=== PATIENT | female | born 1980 | race Caucasian/White ===

== ENCOUNTER → 2018-01-10 09:00 | Outpatient (CLI) | payer OTHER, SELFPAY ==
[2018-01-20 08:21] LABS: HPV APTIMA, High Risk Negative (Negative); HPV Reflexed? YES, CHARGE PATIENT
== END ==
PROVIDERS: Visit Provider Obstetrics & Gynecology
DX: Z12.4 Encounter for screening for malignant neoplasm of cervix (principal)
CPT/HCPCS: 87624; 88175; G0145

== ENCOUNTER → 2018-02-06 19:30 | Outpatient (CLI) | payer OTHER, SELFPAY ==
--- NOTE | 2018-02-06 | IMM_PTH ---
PATIENT: JASMYNE FORD LOC: [facility] U#:[id number] AGE/SX: 45/F ROOM: RE02/06/[address]: Dr. Migue Torrez MD : 1980 BED: DIS: SPEC #: [id number] RECD: 02/08/18 10:49 STATUS: HALI NICOLA #: [id number] JASON: 02/06/18 00:[address]: Migue Torrez DEPT: IMMUNOHISTOCHEMISTRY RECD BY: Bel Kim Tissues: A - Uterine cervix, NOS Procedures: p16 (initial) KI-67 (add) PHYSICIAN & INSTITUTION [place] [id number] SPECIMEN INFORMATION: Tissue Source: A ? Cervical biopsy four-quad Clinical Info: HERLINDA Specimen Number: [id number] CPT code: 89305, 99946 METHODOLOGY: Deparaffinized sections of prefer/formalin-fixed tissue or PAP/DQ stained slides are incubated with monoclonal/polyclonal antibodies/oligonucleotide probes. Localization is made via biotin free immunoperoxidase method. Appropriate controls are performed and reacted as expected. Results on target cell population are indicated in the following table: RESULTS: ANTIBODY / CLONE RESULT Block A P16 (E6H4) positive, focal and patchy Ki-67 (30-9) positive, low These tests were developed and their performance characteristics determined by [facility]. They may not have been cleared or approved by the U.S. Food and Drug Administration. The FDA has determined that such clearance or approval is not necessary. INTERPRETATION: A. Cervix, four-quad biopsy: Focal mild squamous dysplasia. SJ:murtaza 02/09/18
--- NOTE | 2018-02-06 15:45 | CER_PTH ---
PATIENT: JASMYNE FORD LOC: [facility]#:[id number] AGE/SX: 45/F ROOM: RE02/06/[address]: Dr. Migue Torrez MD : 1980 BED: DIS: SPEC #: [id number] RECD: 02/06/18 19:30 STATUS: HALI NICOLA #: [id number] JASON: 02/06/18 15:[address]: Migue Torrez DEPT: SURGICAL PATHOLOGY RECD BY: Sudhri Enrique Tissues: A - Uterine cervix, NOS B - Endocervical Procedures: Surgery Specimen Level IV HEADER OPERATION: Colposcopy PRE-OP DIAGNOSIS: LGSIL R87.612 TISSUE SUBMITTED: A ? Cervical biopsy four-quad, B - ECC MICROSCOPIC DIAGNOSIS A. Cervix, four-quadrant biopsy: Mild squamous dysplasia with HPV changes (LGSIL and JOSEPH I). Acute and chronic inflammation and squamous metaplasia. See comment. B. ECC: Scant fragments of benign ecto- and endocervical epithelium, blood and mucous, negative for dysplasia. JASPER:murtaza 02/08/18 COMMENT A. Immunohistochemistry ([id number]) for surrogate HPV marker (p16) supports the above diagnosis. B. The specimen predominantly consists of blood and mucous. Please make reference to previous specimen ([id number]) cervix, 12 o?clock, biopsy with diagnosis of mild dysplasia with HPV changes. MICROSCOPIC DESCRIPTION Slides are reviewed. GROSS DESCRIPTION A - Received in fixative is one container labeled with the patient's name and designated cervical biopsy. The specimen consists of multiple irregular fragments of pink-galicia soft tissue that in aggregate measure 1.2 x 0.6 x 0.2 cm. The specimen is totally submitted in one cassette. B - Received in fixative is one container labeled with the patient's name and designated ECC. The specimen consists of multiple irregular fragments of dark brown soft tissue that in aggregate measure 1.1 x 0.7 x 0.1 cm. The specimen is totally submitted in one cassette. / RY:murtaza 02/07/18 TC:5 CPT: 72087 x2
== END ==
PROVIDERS: Visit Provider Obstetrics & Gynecology
DX: R87.612 Low grade squamous intraepithelial lesion on cytologic smear of cervix (LGSIL) (principal)
CPT/HCPCS: 88305; 88341; 88342

== ENCOUNTER → 2019-01-16 14:30 | Outpatient (CLI) | payer OTHER, SELFPAY ==
[2019-01-19 16:11] LABS: HPV APTIMA, High Risk Negative (Negative)
== END ==
PROVIDERS: Visit Provider Obstetrics & Gynecology
DX: Z12.4 Encounter for screening for malignant neoplasm of cervix (principal)
CPT/HCPCS: 88175; G0145

== ENCOUNTER → 2020-03-12 | Outpatient (CLI) | payer OTHER, SELFPAY ==
[2020-03-14 00:40] LABS: HPV APTIMA, High Risk Negative (Negative)
[2020-03-17 16:14] LABS: HPV Reflexed? YES, CHARGE PATIENT
== END | disposition home or self-care (01) ==
LOC: LABSPEC 08:48
PROVIDERS: Referring Provider Obstetrics & Gynecology; Visit Provider Obstetrics & Gynecology
DX: Z12.4 Encounter for screening for malignant neoplasm of cervix (principal)
CPT/HCPCS: 87624; 88175; G0145

== ENCOUNTER → 2020-05-12 | Outpatient (CLI) | payer OTHER, SELFPAY ==
[2020-05-08 08:59] VITALS: BMI 24.6
--- NOTE | 2020-05-12 | BRBX_PTH ---
PATIENT: JASMYNE FORD LOC: [facility] U#:[id number] AGE/SX: 39/F ROOM: RE05/12/[address]: TORIE: 1980 BED: DIS: 05/12/2020 SPEC #: [id number]: 05/12/20 12:04 STATUS: HALI PETERSEN #: [id number] JASON: 05/12/20 00:[address]: Key Tabor DEPT: SURGICAL PATHOLOGY RECD BY: Manuel Hernandez ENTERED: 05/12/20 12:23 SP TYPE: BREAST BX HEIDI DR: Dr. Tony Garnett MD Tissues: Right breast, NOS Procedures: Surgery Specimen Level IV HEADER OPERATION: Right breast stereotactic biopsy PRE-OP DIAGNOSIS: Right breast calcifications 12 o'clock mid depth TISSUE SUBMITTED: Right breast core tissue ISCHEMIC TIME: 1.5 minute FIXATION TIME: 7.5 hours MICROSCOPIC DIAGNOSIS Right breast, calcifications, 12 o'clock mid depth, stereotactic core biopsy: Fragments of benign breast tissue with focal minimal fibrosis. Negative for atypia or malignancy. See comment. JASPER:murtaza 05/13/20 COMMENT Microcalcifications are not seen. Multiple levels are examined. Correlation with clinical, radiologic findings and appropriate follow up are necessary. Please make reference to previous specimen dated 04/30/20 ([id number] from [facility]), left breast mass, needle core biopsy at 3 o'clock with diagnosis of ductal carcinoma in situ, nuclear grade 3, solid and cribriform type. Case has been reviewed in consultation with Dr. Ware who concurs with the above diagnosis. IDC:AM MICROSCOPIC DESCRIPTION Slides are reviewed. GROSS DESCRIPTION Received in fixative is one container labeled with the patient name and designated right breast. The specimen consists of multiple elongated fragments of galicia-yellow fibroadipose tissue that in aggregate measure 2.5 x 1.5 x 0.3 cm. The entire specimen is submitted in one cassette. / JASPER:murtaza 05/12/20 TC:5 CPT: 72525
--- NOTE | 2020-05-12 10:00 | BI_ITS ---
STEREOTACTIC CORE BIOPSY REASON FOR EXAM: Female, 39 years old. RIGHT BREAST STEREO PERTINENT HISTORY: Microcalcifications in the deep central portion of the right breast. COMPARISON: None. TECHNIQUE: (All elements of maximal sterile barrier technique followed, including US elements as applicable) Upon arrival to the breast imaging department the patient''s identification was confirmed and the RIGHT breast was marked according to time-out protocol. Stereotactic core biopsy and clip placement, to include potential risks and complications, was explained in full to the patient. Written and verbal consent were obtained prior to initiation of the procedure. The patient was placed in prone position on the stereotactic biopsy table with the RIGHT breast in cranial caudad compression. Environmental [employer] Specialist and stereotactic views were then obtained for targeting. The RIGHT breast was prepped and draped in standard sterile fashion and local anesthesia was obtained with 1% buffered lidocaine. A small dermatotomy was then made to introduce the core biopsy needle. Multiple core samples were obtained with a 8 gauge vacuum assisted core biopsy needle. The specimen''s were radiographed to determine the presence of calcifications and submitted in formalin for pathology. A titanium clip was then deployed into the biopsy cavity. Upon completion of the procedure hemostasis was obtained and sterile dressing was applied. The patient tolerated the entire procedure without immediate complication and was discharged from the breast imaging department in good condition. BI/Stereo Breast Biopsy 1st [facility] IMPRESSION: Stereotactic core biopsy for microcalcifications in the RIGHT breast without complication. Electronically Signed: Mitul Graf, at 14:43 EDT , Service support ,
--- NOTE | 2020-05-15 10:43 | HP_ITS ---
ADDENDUM by Dr. Key Tabor MD on 05/15/20 at 1045 Addendum entered and electronically signed by Key Tabor MD 05/15/20 10:45: Did also discuss with patient option of having a mastectomy for the left side with DCIS she did want to just proceed with the lumpectomy currently understand that she may need more surgery for margins or possibly a sentinel lymph node biopsy if there is found to be any invasive component. Patient is also aware that we will recommend radiation therapy for DCIS after surgery as well as an anti-estrogen pill. Patient was okay with proceeding with surgery and not meeting with radiation oncology at this point. She has already met with Dr. Rome. Patient no further questions this time. Intake Chief Complaint: Referred for L breast DCIS and R breast calcifications. Allergies acetaminophen [From Vicodin] Adverse Reaction (Verified 05/14/20 13:29) Rash adhesive tape Adverse Reaction (Verified 05/14/20 13:29) Rash bacitracin [From Neosporin (med-tin-[id number])] Adverse Reaction (Verified 05/14/20 13:29) Other bacitracin zinc [From Neosporin (vum-afe-ubhkl)] Adverse Reaction (Verified 05/14/20 13:29) Other hydrocodone bitartrate [From Vicodin] Adverse Reaction (Verified 05/14/20 13:29) Rash neomycin sulfate [From Neosporin (tff-ftq-mcvzd)] Adverse Reaction (Verified 05/14/20 13:29) Other polymyxin B [From Neosporin (het-auw-phkem)] Adverse Reaction (Verified 05/14/20 13:29) Other Medications Acyclovir 400 mg PO DAILY 09/23/14 [History Confirmed 05/14/20] Ascorbic Acid [Vitamin C] 1,000 mg PO DAILY@0800 09/23/14 [History Confirmed 05/14/20] Multivitamins,Therapeutic [Multivitamin] 1 tab PO DAILY 09/23/14 [History Confirmed 05/14/20] Levonorgestrel-Ethin Estradiol [Aviane-28 Tablet] 1 ea PO DAILY 05/07/20 [History Confirmed 05/14/20] omeprazole 20 mg capsule,delayed release 20 mg PO DAILY 05/14/20 [History Confirmed 05/14/20] Assessment & Plan Problems 1. Ductal carcinoma in situ (DCIS) of left breast D05.12 2. Breast calcification, right R92.1 Plan - Dr. Key Tabor MD Patient did not have a clip or marker placed when she had her left breast ultrasound-guided biopsy about 2 weeks ago which showed DCIS. With patient get an ultrasound here to make sure we were able to see it well as I cannot see it well with our ultrasound in the office. Discussed with patient that if we are able to see it we will plan for needle localization in ultrasound for the left breast and stereotactic needle localization for the right breast calcifications that that pathology did not show calcifications question whether this may be vascular in nature but I do think it be worth getting an excisional biopsy and patient also would like the clip removed. Plan for left breast ultrasound guided needle localization (in ultrasound), right breast stereotactic guided needle localization, bilateral lumpectomies. Discussed procedure including but not limited to risk of bleeding, infection, need for further surgeries for margins or lymph nodes if pathology showed any evidence of invasive cancer, anesthesia, etc. Patient and her no further questions this time. Greater than 50% of direct patient contact was spent in counseling or coordination of care. I spent 70 minutes counseling the patient on DCIS, possible need for further surgery for margins or lymph nodes if there are were found to have invasive cancer, reviewing imaging studies from outside along with biopsy results and coordinating care. Key Tabor M.D. Pager: [phone] [facility] [address] [place] [address], [address] [place] [address] Office: [phone] Plan Detail Follow Up We will get left breast ultrasound contact the patient and plan for surgery as long as he is able to be seen under ultrasound. 05/15/20 1045 <Electronically signed by Key Meyer am, MD> Date _ Key Tabor MD cc: Dr. Migue Trorez MD; Dr. Derrick Rome MD; Dr. Tony Garnett MD ~* Signed Intake Vital Signs 05/14/20 Height 5 ft 8 in 05/14/20 Weight: 164 lb 05/14/20 BMI 24.9 05/14/20 BP 116/80 05/14/20 Blood Pressure Location Rt brachial 05/14/20 Position Sitting 05/14/20 Respiration 18 05/14/20 Pulse 68 05/14/20 Pulse Source Monitor 05/14/20 Temp 98.3 F 05/14/20 Temp Source Temporal 05/14/20 Pulse Oximetry (%) 100 05/14/20 Oxygen Delivery Method room air Intake Visit Reasons: LUMPECTOMY , LEFT BREAST CANCER Chief Complaint: Referred for L breast DCIS and R breast calcifications. Lacquer Maker Required: No Accompanied by: Is patient in pain?: No Allergies acetaminophen [From Vicodin] Adverse Reaction (Verified 05/14/20 13:29) Rash adhesive tape Adverse Reaction (Verified 05/14/20 13:29) Rash bacitracin [From Neosporin (zad-pfk-klprw)] Adverse Reaction (Verified 05/14/20 13:29) Other bacitracin zinc [From Neosporin (hvj-sbn-qrfeg)] Adverse Reaction (Verified 05/14/20 13:29) Other hydrocodone bitartrate [From Vicodin] Adverse Reaction (Verified 05/14/20 13:29) Rash neomycin sulfate [From Neosporin (jms-qej-hfwsv)] Adverse Reaction (Verified 05/14/20 13:29) Other polymyxin B [From Neosporin (njl-zzj-rgpnr)] Adverse Reaction (Verified 05/14/20 13:29) Other Medications Acyclovir 400 mg PO DAILY 09/23/14 [History Confirmed 05/14/20] Ascorbic Acid [Vitamin C] 1,000 mg PO DAILY@0800 09/23/14 [History Confirmed 05/14/20] Multivitamins,Therapeutic [Multivitamin] 1 tab PO DAILY 09/23/14 [History Confirmed 05/14/20] Levonorgestrel-Ethin Estradiol [Aviane-28 Tablet] 1 ea PO DAILY 05/07/20 [History Confirmed 05/14/20] omeprazole 20 mg capsule,delayed release 20 mg PO DAILY 05/14/20 [History Confirmed 05/14/20] [facility] Medical History Abnormal mammogram (Acute) Ductal carcinoma in situ (DCIS) of left breast (Acute) Forearm pain (Acute) Wrist tendonitis (Acute) Surgical History Hx of knee surgery (Acute) Family History (Updated 05/14/20 @ 13:26 by Virginie Herrera) Grandfather Colon cancer Social History (Updated 05/15/20 @ 10:[address] Key Tabor MD) Smoking Status: Never smoker alcohol intake: current alcohol intake frequency: a few times a month substance use type: does not use HPI HPI HPI: JASMYNE FORD, is a 39 F who presents to the office today for HPI HPI Surgical H&P: Yes HPI: JASMYNE FORD, is a 39 F who presents to the office today for status post bilateral breast biopsies. Patient was seen at [facility] and had an ultrasound-guided biopsy about 2 weeks ago of the left breast at 3:00 which did show DCIS, no marker was left at the patient's request. Patient also showed some calcifications in the right breast which was given BI-RADS 3 and she was scheduled to have a stereotactic guided biopsy at [facility] with our radiologist which was completed on Tuesday. Pathology for the right breast did not show any calcifications or any malignancy or atypia. Patient did allow a clip to be placed however due to previous strange reactions to various things including Neosporin patient does not want to keep the clip in long-term and would prefer for it to be removed. Patient had her first mammogram done this year. Patient denies any family history of breast cancer. Denies any masses or lumps appreciated in either breast, denies any nipple discharge, denies any changes to overlying skin. Patient did have a little bit of bruising from that previous biopsies which is improving. ROS General General: No weight change, fatigue, colon cancer, breast cancer or weakness HEENT HEENT: No difficulty swallowing, eye injury, eye surgery, swollen glands or hoarseness Endo Endocrine: No thyroid disease, diabetes mellitus, thyroid cancer, Hair loss, heat intolerance or cold intolerance Skin Skin: No rash or changing moles Breast Breast: Yes abnormal mammogram and abnormal US; no left breast lump, right breast lump, nipple discharge, breast pain or breast enlargement Musc Musculoskeletal: No back problems, arthritis, rheumatoid arthritis, gout or joint pain Cardio Cardiovascular: No murmur, pacemaker, heart disease, atrial fibrillation, high blood pressure, heart attack, heart stent, palpitations, shortness of breat with exertion or chest pain Psych Psychiatric: No depression, anxiety or hearing voices Resp Respiratory: No shortness of breath, No sleep apnea, No cough, No COPD, No asthma, No emphysema, No wheezing Gastro Gastrointestinal: No abdominal pain, No nausea or vomiting, No diarrhea, No constipation, No blood in stool, Yes acid reflux, No hemorrhoids, No ulcers, No gallbladder problem, No black,tarry stools Ty Hematologic: No blood thinners, No blood disorders, No bleeding, No anemia, No blood clots Neuro Neurologic: No system reviewed and no additional complaints, except as docu, No as per HPI, No abnormal walking, No abnormal hearing, No abnormal movements, No abnormal speech, No behavioral changes, No burning sensations, No confusion, No seizure-like activity, No unsteadiness, No dizziness, No localized weakness, No frequent falls, No headache(s), No lack of coordination, No loss of vision, No memory loss, No numbness, No other visual disturbances, No radiating pain, No restless legs, No sensory deficit, No fainting, No tingling, No tremor(s), No weakness, No other Exam Const General: cooperative, comfortable, no acute distress Chest Breast inspection: abnormal inspection of the breast (Symmetric bilaterally, evidence of previous biopsies and resolving ecchymosis on the left breast incision healing well, right breast biopsy site still healing no signs of infection) Breast Palpation: Yes normal palpation of the axillae, Yes no axillary lymphadenopathy, Yes abnormal palpation of the axilla (Induration appreciated at biopsy sites otherwise no other masses detected on exam, left incision well- healed, right breast incision still healing no signs of infection.), No nipple discharge, No supraclavicular, No change in skin Resp Effort & Inspection: normal respiratory effort Cardio Heart Sounds: no murmurs GI Inspection: non-distended Palpation: soft, no guarding Psych Affect: anxious affect Attitude: cooperative Assessment & Plan Problems 1. Ductal carcinoma in situ (DCIS) of left breast D05.12 2. Breast calcification, right R92.1 Plan Patient did not have a clip or marker placed when she had her left breast ultrasound-guided biopsy about 2 weeks ago which showed DCIS. With patient get an ultrasound here to make sure we were able to see it well as I cannot see it well with our ultrasound in the office. Discussed with patient that if we are able to see it we will plan for needle localization in ultrasound for the left breast and stereotactic needle localization for the right breast calcifications that that pathology did not show calcifications question whether this may be vascular in nature but I do think it be worth getting an excisional biopsy and patient also would like the clip removed. Plan for left breast ultrasound guided needle localization (in ultrasound), right breast stereotactic guided needle localization, bilateral lumpectomies. Discussed procedure including but not limited to risk of bleeding, infection, need for further surgeries for margins or lymph nodes if pathology showed any evidence of invasive cancer, anesthesia, etc. Patient and her no further questions this time. Greater than 50% of direct patient contact was spent in counseling or coordination of care. I spent 70 minutes counseling the patient on DCIS, possible need for further surgery for margins or lymph nodes if there are were found to have invasive cancer, reviewing imaging studies from outside along with biopsy results and coordinating care. Key Tabor M.D. Pager: [phone] [facility] [address] [place] [address], [address] [place] [address] Office: [phone] Plan Detail Follow Up We will get left breast ultrasound contact the patient and plan for surgery as long as he is able to be seen under ultrasound. Coding Level of Care Code Off vis,new,level 5 Diagnoses Ductal carcinoma in situ (DCIS) of left breast D05.12 Breast calcification, right R92.1 COVID (Procedure Consent) Procedure Criteria Procedure Criteria: Yes Elective The surgeon/proceduralist and patient have discussed in detail the risk of exposure to and/or potential harm posed by the COVID-19 virus with having a surgery/procedure at this time versus the risk of? delaying the surgery/procedure. It is not possible to know either the risk of delaying the surgery or procedure or chance of getting an infection with perfect accuracy, but a joint decision was made between the patient and the surgeon/proceduralist ?to proceed at this time with the scheduled surgery/procedure as indicated on the consent form. 05/15/20 1043 <Electronically signed by Key Meyer am, MD> Date _ Key Tabor MD
== END | disposition home or self-care (01) ==
LOC: BIRAD 10:01
PROVIDERS: PCP Family Medicine
DX: N60.31 Fibrosclerosis of right breast (principal); R92.0 Mammographic microcalcification found on diagnostic imaging of breast
CPT/HCPCS: 19081; 88305; J7050; A4648

== ENCOUNTER → 2020-05-15 | Outpatient (CLI) | payer OTHER, SELFPAY ==
[2020-05-14 13:31] VITALS: BMI 24.6
--- NOTE | 2020-05-15 08:22 | US_ITS ---
STUDY: ULTRASOUND BREAST - LEFT REASON FOR EXAM: Female, 39 years old. History of DCIS. TECHNIQUE: Axial and longitudinal images of the LEFT breast were performed with a high resolution ultrasound transducer. # OF IMAGES: 25 COMPARISON: Comparison is made with prior outside examination dated April 30, 2020. FINDINGS: LEFT Breast: There is a 5 mm x 4 mm x 5 mm hypoechoic irregular nodule at the 3:00 position of the breast at 3 cm from the nipple. This is unchanged. This was previously biopsied. Increased flow is seen within it. US/Breast Limited Unilateral IMPRESSION: Stable 5 mm x 5 mm x 4 mm hypoechoic irregular nodule at the 3:00 position of the breast at 3 cm from the nipple. This was previously biopsied. ASSESSMENT CATEGORY: BIRADS Category 6: Known Biopsy-Proven Malignancy - Appropriate Action Should Be Taken. A letter regarding these results will be sent to the patient by the facility within 30 days. Electronically Signed: Mitul Graf, at 14:05 EDT , Service support ,
== END | disposition home or self-care (01) ==
LOC: US 08:22
PROVIDERS: PCP Family Medicine; Referring Provider Surgery; Visit Provider Surgery
DX: D05.12 Intraductal carcinoma in situ of left breast (principal)
CPT/HCPCS: 76642

== ENCOUNTER → 2020-05-16 11:00 | Outpatient (CLI) | payer OTHER, SELFPAY ==
[2020-05-14 13:31] VITALS: BMI 24.6
--- NOTE | 2020-05-15 10:43 | HP_ITS ---
ADDENDUM by Dr. Key Tabor MD on 05/15/20 at 1045 Addendum entered and electronically signed by Key Tabor MD 05/15/20 10:45: Did also discuss with patient option of having a mastectomy for the left side with DCIS she did want to just proceed with the lumpectomy currently understand that she may need more surgery for margins or possibly a sentinel lymph node biopsy if there is found to be any invasive component. Patient is also aware that we will recommend radiation therapy for DCIS after surgery as well as an anti-estrogen pill. Patient was okay with proceeding with surgery and not meeting with radiation oncology at this point. She has already met with Dr. Rome. Patient no further questions this time. Intake Chief Complaint: Referred for L breast DCIS and R breast calcifications. Allergies acetaminophen [From Vicodin] Adverse Reaction (Verified 05/14/20 13:29) Rash adhesive tape Adverse Reaction (Verified 05/14/20 13:29) Rash bacitracin [From Neosporin (ukv-mrk-tpyjh)] Adverse Reaction (Verified 05/14/20 13:29) Other bacitracin zinc [From Neosporin (vza-fsj-vbwjb)] Adverse Reaction (Verified 05/14/20 13:29) Other hydrocodone bitartrate [From Vicodin] Adverse Reaction (Verified 05/14/20 13:29) Rash neomycin sulfate [From Neosporin (aki-xyy-kavuw)] Adverse Reaction (Verified 05/14/20 13:29) Other polymyxin B [From Neosporin (ljz-bsp-rowgs)] Adverse Reaction (Verified 05/14/20 13:29) Other Medications Acyclovir 400 mg PO DAILY 09/23/14 [History Confirmed 05/14/20] Ascorbic Acid [Vitamin C] 1,000 mg PO DAILY@0800 09/23/14 [History Confirmed 05/14/20] Multivitamins,Therapeutic [Multivitamin] 1 tab PO DAILY 09/23/14 [History Confirmed 05/14/20] Levonorgestrel-Ethin Estradiol [Aviane-28 Tablet] 1 ea PO DAILY 05/07/20 [History Confirmed 05/14/20] omeprazole 20 mg capsule,delayed release 20 mg PO DAILY 05/14/20 [History Confirmed 05/14/20] Assessment & Plan Problems 1. Ductal carcinoma in situ (DCIS) of left breast D05.12 2. Breast calcification, right R92.1 Plan - Dr. Key Tabor MD Patient did not have a clip or marker placed when she had her left breast ultrasound-guided biopsy about 2 weeks ago which showed DCIS. With patient get an ultrasound here to make sure we were able to see it well as I cannot see it well with our ultrasound in the office. Discussed with patient that if we are able to see it we will plan for needle localization in ultrasound for the left breast and stereotactic needle localization for the right breast calcifications that that pathology did not show calcifications question whether this may be vascular in nature but I do think it be worth getting an excisional biopsy and patient also would like the clip removed. Plan for left breast ultrasound guided needle localization (in ultrasound), right breast stereotactic guided needle localization, bilateral lumpectomies. Discussed procedure including but not limited to risk of bleeding, infection, need for further surgeries for margins or lymph nodes if pathology showed any evidence of invasive cancer, anesthesia, etc. Patient and her no further questions this time. Greater than 50% of direct patient contact was spent in counseling or coordination of care. I spent 70 minutes counseling the patient on DCIS, possible need for further surgery for margins or lymph nodes if there are were found to have invasive cancer, reviewing imaging studies from outside along with biopsy results and coordinating care. Key Tabor M.D. Pager: [phone] [facility] [address] [place] [address], [address] [place] [address] Office: [phone] Plan Detail Follow Up We will get left breast ultrasound contact the patient and plan for surgery as long as he is able to be seen under ultrasound. 05/15/20 1045 <Electronically signed by Key Meyer am, MD> Date _ Key Tabor MD cc: Dr. Migue Torrez MD; Dr. Derrick Rome MD; Dr. Tony Garnett MD ~* Signed Intake Vital Signs 05/14/20 Height 5 ft 8 in 05/14/20 Weight: 164 lb 05/14/20 BMI 24.9 05/14/20 BP 116/80 05/14/20 Blood Pressure Location Rt brachial 05/14/20 Position Sitting 05/14/20 Respiration 18 05/14/20 Pulse 68 05/14/20 Pulse Source Monitor 05/14/20 Temp 98.3 F 05/14/20 Temp Source Temporal 05/14/20 Pulse Oximetry (%) 100 05/14/20 Oxygen Delivery Method room air Intake Visit Reasons: LUMPECTOMY , LEFT BREAST CANCER Chief Complaint: Referred for L breast DCIS and R breast calcifications. Adjunct Latin Professor Required: No Accompanied by: Is patient in pain?: No Allergies acetaminophen [From Vicodin] Adverse Reaction (Verified 05/14/20 13:29) Rash adhesive tape Adverse Reaction (Verified 05/14/20 13:29) Rash bacitracin [From Neosporin (cqw-wuc-gltdd)] Adverse Reaction (Verified 05/14/20 13:29) Other bacitracin zinc [From Neosporin (kai-beb-rrtwq)] Adverse Reaction (Verified 05/14/20 13:29) Other hydrocodone bitartrate [From Vicodin] Adverse Reaction (Verified 05/14/20 13:29) Rash neomycin sulfate [From Neosporin (pir-gok-ruvet)] Adverse Reaction (Verified 05/14/20 13:29) Other polymyxin B [From Neosporin (hph-cop-yhghg)] Adverse Reaction (Verified 05/14/20 13:29) Other Medications Acyclovir 400 mg PO DAILY 09/23/14 [History Confirmed 05/14/20] Ascorbic Acid [Vitamin C] 1,000 mg PO DAILY@0800 09/23/14 [History Confirmed 05/14/20] Multivitamins,Therapeutic [Multivitamin] 1 tab PO DAILY 09/23/14 [History Confirmed 05/14/20] Levonorgestrel-Ethin Estradiol [Aviane-28 Tablet] 1 ea PO DAILY 05/07/20 [History Confirmed 05/14/20] omeprazole 20 mg capsule,delayed release 20 mg PO DAILY 05/14/20 [History Confirmed 05/14/20] [facility] Medical History Abnormal mammogram (Acute) Ductal carcinoma in situ (DCIS) of left breast (Acute) Forearm pain (Acute) Wrist tendonitis (Acute) Surgical History Hx of knee surgery (Acute) Family History (Updated 05/14/20 @ 13:26 by Virginie Herrera) Grandfather Colon cancer Social History (Updated 05/15/20 @ 10:[address] Key Tabor MD) Smoking Status: Never smoker alcohol intake: current alcohol intake frequency: a few times a month substance use type: does not use HPI HPI HPI: JASMYNE FORD, is a 39 F who presents to the office today for HPI HPI Surgical H&P: Yes HPI: JASMYNE FORD, is a 39 F who presents to the office today for status post bilateral breast biopsies. Patient was seen at [facility] and had an ultrasound-guided biopsy about 2 weeks ago of the left breast at 3:00 which did show DCIS, no marker was left at the patient's request. Patient also showed some calcifications in the right breast which was given BI-RADS 3 and she was scheduled to have a stereotactic guided biopsy at [facility] with our radiologist which was completed on Tuesday. Pathology for the right breast did not show any calcifications or any malignancy or atypia. Patient did allow a clip to be placed however due to previous strange reactions to various things including Neosporin patient does not want to keep the clip in long-term and would prefer for it to be removed. Patient had her first mammogram done this year. Patient denies any family history of breast cancer. Denies any masses or lumps appreciated in either breast, denies any nipple discharge, denies any changes to overlying skin. Patient did have a little bit of bruising from that previous biopsies which is improving. ROS General General: No weight change, fatigue, colon cancer, breast cancer or weakness HEENT HEENT: No difficulty swallowing, eye injury, eye surgery, swollen glands or hoarseness Endo Endocrine: No thyroid disease, diabetes mellitus, thyroid cancer, Hair loss, heat intolerance or cold intolerance Skin Skin: No rash or changing moles Breast Breast: Yes abnormal mammogram and abnormal US; no left breast lump, right breast lump, nipple discharge, breast pain or breast enlargement Musc Musculoskeletal: No back problems, arthritis, rheumatoid arthritis, gout or joint pain Cardio Cardiovascular: No murmur, pacemaker, heart disease, atrial fibrillation, high blood pressure, heart attack, heart stent, palpitations, shortness of breat with exertion or chest pain Psych Psychiatric: No depression, anxiety or hearing voices Resp Respiratory: No shortness of breath, No sleep apnea, No cough, No COPD, No asthma, No emphysema, No wheezing Gastro Gastrointestinal: No abdominal pain, No nausea or vomiting, No diarrhea, No constipation, No blood in stool, Yes acid reflux, No hemorrhoids, No ulcers, No gallbladder problem, No black,tarry stools Ty Hematologic: No blood thinners, No blood disorders, No bleeding, No anemia, No blood clots Neuro Neurologic: No system reviewed and no additional complaints, except as docu, No as per HPI, No abnormal walking, No abnormal hearing, No abnormal movements, No abnormal speech, No behavioral changes, No burning sensations, No confusion, No seizure-like activity, No unsteadiness, No dizziness, No localized weakness, No frequent falls, No headache(s), No lack of coordination, No loss of vision, No memory loss, No numbness, No other visual disturbances, No radiating pain, No restless legs, No sensory deficit, No fainting, No tingling, No tremor(s), No weakness, No other Exam Const General: cooperative, comfortable, no acute distress Chest Breast inspection: abnormal inspection of the breast (Symmetric bilaterally, evidence of previous biopsies and resolving ecchymosis on the left breast incision healing well, right breast biopsy site still healing no signs of infection) Breast Palpation: Yes normal palpation of the axillae, Yes no axillary lymphadenopathy, Yes abnormal palpation of the axilla (Induration appreciated at biopsy sites otherwise no other masses detected on exam, left incision well- healed, right breast incision still healing no signs of infection.), No nipple discharge, No supraclavicular, No change in skin Resp Effort & Inspection: normal respiratory effort Cardio Heart Sounds: no murmurs GI Inspection: non-distended Palpation: soft, no guarding Psych Affect: anxious affect Attitude: cooperative Assessment & Plan Problems 1. Ductal carcinoma in situ (DCIS) of left breast D05.12 2. Breast calcification, right R92.1 Plan Patient did not have a clip or marker placed when she had her left breast ultrasound-guided biopsy about 2 weeks ago which showed DCIS. With patient get an ultrasound here to make sure we were able to see it well as I cannot see it well with our ultrasound in the office. Discussed with patient that if we are able to see it we will plan for needle localization in ultrasound for the left breast and stereotactic needle localization for the right breast calcifications that that pathology did not show calcifications question whether this may be vascular in nature but I do think it be worth getting an excisional biopsy and patient also would like the clip removed. Plan for left breast ultrasound guided needle localization (in ultrasound), right breast stereotactic guided needle localization, bilateral lumpectomies. Discussed procedure including but not limited to risk of bleeding, infection, need for further surgeries for margins or lymph nodes if pathology showed any evidence of invasive cancer, anesthesia, etc. Patient and her no further questions this time. Greater than 50% of direct patient contact was spent in counseling or coordination of care. I spent 70 minutes counseling the patient on DCIS, possible need for further surgery for margins or lymph nodes if there are were found to have invasive cancer, reviewing imaging studies from outside along with biopsy results and coordinating care. Key Tabor M.D. Pager: [phone] [facility] [address] [place] [address], [address] [place] [address] Office: [phone] Plan Detail Follow Up We will get left breast ultrasound contact the patient and plan for surgery as long as he is able to be seen under ultrasound. Coding Level of Care Code Off vis,new,level 5 Diagnoses Ductal carcinoma in situ (DCIS) of left breast D05.12 Breast calcification, right R92.1 COVID (Procedure Consent) Procedure Criteria Procedure Criteria: Yes Elective The surgeon/proceduralist and patient have discussed in detail the risk of exposure to and/or potential harm posed by the COVID-19 virus with having a surgery/procedure at this time versus the risk of? delaying the surgery/procedure. It is not possible to know either the risk of delaying the surgery or procedure or chance of getting an infection with perfect accuracy, but a joint decision was made between the patient and the surgeon/proceduralist ?to proceed at this time with the scheduled surgery/procedure as indicated on the consent form. 05/15/20 1043 <Electronically signed by Key Meyer am, MD> Date _ Key Tabor MD
--- NOTE | 2020-05-15 10:43 | HP_ITS ---
ADDENDUM by Dr. Key Tabor MD on 05/15/20 at 1045 Addendum entered and electronically signed by Key Tabor MD 05/15/20 10:45: Did also discuss with patient option of having a mastectomy for the left side with DCIS she did want to just proceed with the lumpectomy currently understand that she may need more surgery for margins or possibly a sentinel lymph node biopsy if there is found to be any invasive component. Patient is also aware that we will recommend radiation therapy for DCIS after surgery as well as an anti-estrogen pill. Patient was okay with proceeding with surgery and not meeting with radiation oncology at this point. She has already met with Dr. Rome. Patient no further questions this time. Intake Chief Complaint: Referred for L breast DCIS and R breast calcifications. Allergies acetaminophen [From Vicodin] Adverse Reaction (Verified 05/14/20 13:29) Rash adhesive tape Adverse Reaction (Verified 05/14/20 13:29) Rash bacitracin [From Neosporin ([id number])] Adverse Reaction (Verified 05/14/20 13:29) Other bacitracin zinc [From Neosporin (fiw-wre-nljgd)] Adverse Reaction (Verified 05/14/20 13:29) Other hydrocodone bitartrate [From Vicodin] Adverse Reaction (Verified 05/14/20 13:29) Rash neomycin sulfate [From Neosporin (irh-rsi-nengw)] Adverse Reaction (Verified 05/14/20 13:29) Other polymyxin B [From Neosporin (sse-srw-vrkwl)] Adverse Reaction (Verified 05/14/20 13:29) Other Medications Acyclovir 400 mg PO DAILY 09/23/14 [History Confirmed 05/14/20] Ascorbic Acid [Vitamin C] 1,000 mg PO DAILY@0800 09/23/14 [History Confirmed 05/14/20] Multivitamins,Therapeutic [Multivitamin] 1 tab PO DAILY 09/23/14 [History Confirmed 05/14/20] Levonorgestrel-Ethin Estradiol [Aviane-28 Tablet] 1 ea PO DAILY 05/07/20 [History Confirmed 05/14/20] omeprazole 20 mg capsule,delayed release 20 mg PO DAILY 05/14/20 [History Confirmed 05/14/20] Assessment & Plan Problems 1. Ductal carcinoma in situ (DCIS) of left breast D05.12 2. Breast calcification, right R92.1 Plan - Dr. Key Tabor MD Patient did not have a clip or marker placed when she had her left breast ultrasound-guided biopsy about 2 weeks ago which showed DCIS. With patient get an ultrasound here to make sure we were able to see it well as I cannot see it well with our ultrasound in the office. Discussed with patient that if we are able to see it we will plan for needle localization in ultrasound for the left breast and stereotactic needle localization for the right breast calcifications that that pathology did not show calcifications question whether this may be vascular in nature but I do think it be worth getting an excisional biopsy and patient also would like the clip removed. Plan for left breast ultrasound guided needle localization (in ultrasound), right breast stereotactic guided needle localization, bilateral lumpectomies. Discussed procedure including but not limited to risk of bleeding, infection, need for further surgeries for margins or lymph nodes if pathology showed any evidence of invasive cancer, anesthesia, etc. Patient and her no further questions this time. Greater than 50% of direct patient contact was spent in counseling or coordination of care. I spent 70 minutes counseling the patient on DCIS, possible need for further surgery for margins or lymph nodes if there are were found to have invasive cancer, reviewing imaging studies from outside along with biopsy results and coordinating care. Key Tabor M.D. Pager: [phone] [facility] [address] [place] [address], [address] [place] [address] Office: [phone] Plan Detail Follow Up We will get left breast ultrasound contact the patient and plan for surgery as long as he is able to be seen under ultrasound. 05/15/20 1045 <Electronically signed by Key Meyer am, MD> Date _ Key Tabor MD cc: Dr. Migue Torrez MD; Dr. Derrick Rome MD; Dr. Tony Garnett MD ~* Signed Intake Vital Signs 05/14/20 Height 5 ft 8 in 05/14/20 Weight: 164 lb 05/14/20 BMI 24.9 05/14/20 BP 116/80 05/14/20 Blood Pressure Location Rt brachial 05/14/20 Position Sitting 05/14/20 Respiration 18 05/14/20 Pulse 68 05/14/20 Pulse Source Monitor 05/14/20 Temp 98.3 F 05/14/20 Temp Source Temporal 05/14/20 Pulse Oximetry (%) 100 05/14/20 Oxygen Delivery Method room air Intake Visit Reasons: LUMPECTOMY , LEFT BREAST CANCER Chief Complaint: Referred for L breast DCIS and R breast calcifications. 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 Accompanied by: Is patient in pain?: No Allergies acetaminophen [From Vicodin] Adverse Reaction (Verified 05/14/20 13:29) Rash adhesive tape Adverse Reaction (Verified 05/14/20 13:29) Rash bacitracin [From Neosporin ([id number]-lst-[id number])] Adverse Reaction (Verified 05/14/20 13:29) Other bacitracin zinc [From Neosporin (olz-csk-bfmqe)] Adverse Reaction (Verified 05/14/20 13:29) Other hydrocodone bitartrate [From Vicodin] Adverse Reaction (Verified 05/14/20 13:29) Rash neomycin sulfate [From Neosporin (xde-auv-ewnkt)] Adverse Reaction (Verified 05/14/20 13:29) Other polymyxin B [From Neosporin (xut-wkl-rhmol)] Adverse Reaction (Verified 05/14/20 13:29) Other Medications Acyclovir 400 mg PO DAILY 09/23/14 [History Confirmed 05/14/20] Ascorbic Acid [Vitamin C] 1,000 mg PO DAILY@0800 09/23/14 [History Confirmed 05/14/20] Multivitamins,Therapeutic [Multivitamin] 1 tab PO DAILY 09/23/14 [History Confirmed 05/14/20] Levonorgestrel-Ethin Estradiol [Aviane-28 Tablet] 1 ea PO DAILY 05/07/20 [History Confirmed 05/14/20] omeprazole 20 mg capsule,delayed release 20 mg PO DAILY 05/14/20 [History Confirmed 05/14/20] [facility] Medical History Abnormal mammogram (Acute) Ductal carcinoma in situ (DCIS) of left breast (Acute) Forearm pain (Acute) Wrist tendonitis (Acute) Surgical History Hx of knee surgery (Acute) Family History (Updated 05/14/20 @ 13:26 by Virginie Herrera) Grandfather Colon cancer Social History (Updated 05/15/20 @ 10:[address] Key Tabor MD) Smoking Status: Never smoker alcohol intake: current alcohol intake frequency: a few times a month substance use type: does not use HPI HPI HPI: JASMYNE FORD, is a 39 F who presents to the office today for HPI HPI Surgical H&P: Yes HPI: JASMYNE FORD, is a 39 F who presents to the office today for status post bilateral breast biopsies. Patient was seen at [facility] and had an ultrasound-guided biopsy about 2 weeks ago of the left breast at 3:00 which did show DCIS, no marker was left at the patient's request. Patient also showed some calcifications in the right breast which was given BI-RADS 3 and she was scheduled to have a stereotactic guided biopsy at [facility] with our radiologist which was completed on Tuesday. Pathology for the right breast did not show any calcifications or any malignancy or atypia. Patient did allow a clip to be placed however due to previous strange reactions to various things including Neosporin patient does not want to keep the clip in long-term and would prefer for it to be removed. Patient had her first mammogram done this year. Patient denies any family history of breast cancer. Denies any masses or lumps appreciated in either breast, denies any nipple discharge, denies any changes to overlying skin. Patient did have a little bit of bruising from that previous biopsies which is improving. ROS General General: No weight change, fatigue, colon cancer, breast cancer or weakness HEENT HEENT: No difficulty swallowing, eye injury, eye surgery, swollen glands or hoarseness Endo Endocrine: No thyroid disease, diabetes mellitus, thyroid cancer, Hair loss, heat intolerance or cold intolerance Skin Skin: No rash or changing moles Breast Breast: Yes abnormal mammogram and abnormal US; no left breast lump, right breast lump, nipple discharge, breast pain or breast enlargement Musc Musculoskeletal: No back problems, arthritis, rheumatoid arthritis, gout or joint pain Cardio Cardiovascular: No murmur, pacemaker, heart disease, atrial fibrillation, high blood pressure, heart attack, heart stent, palpitations, shortness of breat with exertion or chest pain Psych Psychiatric: No depression, anxiety or hearing voices Resp Respiratory: No shortness of breath, No sleep apnea, No cough, No COPD, No asthma, No emphysema, No wheezing Gastro Gastrointestinal: No abdominal pain, No nausea or vomiting, No diarrhea, No constipation, No blood in stool, Yes acid reflux, No hemorrhoids, No ulcers, No gallbladder problem, No black,tarry stools Ty Hematologic: No blood thinners, No blood disorders, No bleeding, No anemia, No blood clots Neuro Neurologic: No system reviewed and no additional complaints, except as docu, No as per HPI, No abnormal walking, No abnormal hearing, No abnormal movements, No abnormal speech, No behavioral changes, No burning sensations, No confusion, No seizure-like activity, No unsteadiness, No dizziness, No localized weakness, No frequent falls, No headache(s), No lack of coordination, No loss of vision, No memory loss, No numbness, No other visual disturbances, No radiating pain, No restless legs, No sensory deficit, No fainting, No tingling, No tremor(s), No weakness, No other Exam Const General: cooperative, comfortable, no acute distress Chest Breast inspection: abnormal inspection of the breast (Symmetric bilaterally, evidence of previous biopsies and resolving ecchymosis on the left breast incision healing well, right breast biopsy site still healing no signs of infection) Breast Palpation: Yes normal palpation of the axillae, Yes no axillary lymphadenopathy, Yes abnormal palpation of the axilla (Induration appreciated at biopsy sites otherwise no other masses detected on exam, left incision well- healed, right breast incision still healing no signs of infection.), No nipple discharge, No supraclavicular, No change in skin Resp Effort & Inspection: normal respiratory effort Cardio Heart Sounds: no murmurs GI Inspection: non-distended Palpation: soft, no guarding Psych Affect: anxious affect Attitude: cooperative Assessment & Plan Problems 1. Ductal carcinoma in situ (DCIS) of left breast D05.12 2. Breast calcification, right R92.1 Plan Patient did not have a clip or marker placed when she had her left breast ultrasound-guided biopsy about 2 weeks ago which showed DCIS. With patient get an ultrasound here to make sure we were able to see it well as I cannot see it well with our ultrasound in the office. Discussed with patient that if we are able to see it we will plan for needle localization in ultrasound for the left breast and stereotactic needle localization for the right breast calcifications that that pathology did not show calcifications question whether this may be vascular in nature but I do think it be worth getting an excisional biopsy and patient also would like the clip removed. Plan for left breast ultrasound guided needle localization (in ultrasound), right breast stereotactic guided needle localization, bilateral lumpectomies. Discussed procedure including but not limited to risk of bleeding, infection, need for further surgeries for margins or lymph nodes if pathology showed any evidence of invasive cancer, anesthesia, etc. Patient and her no further questions this time. Greater than 50% of direct patient contact was spent in counseling or coordination of care. I spent 70 minutes counseling the patient on DCIS, possible need for further surgery for margins or lymph nodes if there are were found to have invasive cancer, reviewing imaging studies from outside along with biopsy results and coordinating care. Key Tabor M.D. Pager: [phone] [facility] [address] [place] [address], [address] [place] [address] Office: [phone] Plan Detail Follow Up We will get left breast ultrasound contact the patient and plan for surgery as long as he is able to be seen under ultrasound. Coding Level of Care Code Off vis,new,level 5 Diagnoses Ductal carcinoma in situ (DCIS) of left breast D05.12 Breast calcification, right R92.1 COVID (Procedure Consent) Procedure Criteria Procedure Criteria: Yes Elective The surgeon/proceduralist and patient have discussed in detail the risk of exposure to and/or potential harm posed by the COVID-19 virus with having a surgery/procedure at this time versus the risk of? delaying the surgery/procedure. It is not possible to know either the risk of delaying the surgery or procedure or chance of getting an infection with perfect accuracy, but a joint decision was made between the patient and the surgeon/proceduralist ?to proceed at this time with the scheduled surgery/procedure as indicated on the consent form. 05/15/20 1043 <Electronically signed by Key Meyer am, MD> Date _ Key Tabor MD
== END ==
PROVIDERS: Anesthesiology; PCP Family Medicine; Referring Provider Surgery; Visit Provider Surgery
DX: Z11.59 Encounter for screening for other viral diseases (principal)
CPT/HCPCS: 87635; G2023; U0003

== ENCOUNTER → 2021-03-17 | Outpatient (CLI) | payer OTHER, SELFPAY ==
[2020-11-27 15:46] VITALS: BMI 25.0
[2021-03-23 12:28] LABS: HPV APTIMA, High Risk Negative (Negative)
[2021-03-23 12:51] LABS: HPV Reflexed? YES, CHARGE PATIENT
== END | disposition home or self-care (01) ==
LOC: LABSPEC 03-18 10:29
PROVIDERS: PCP Family Medicine; Visit Provider Obstetrics & Gynecology
DX: Z12.4 Encounter for screening for malignant neoplasm of cervix (principal)
CPT/HCPCS: 87624; 88175; G0145

== ENCOUNTER → 2022-03-31 | Outpatient (CLI) | payer OTHER, SELFPAY ==
[2022-04-07 22:22] LABS: HPV Reflexed? NOT INDICATED
== END | disposition home or self-care (01) ==
LOC: LABSPEC 13:44
PROVIDERS: PCP Family Medicine; Referring Provider Obstetrics & Gynecology; Visit Provider Obstetrics & Gynecology
DX: Z12.4 Encounter for screening for malignant neoplasm of cervix (principal)
CPT/HCPCS: 88175; G0145